=== PATIENT | male | born 1950 | race Two or more races ===

== ENCOUNTER → 2024-07-07 | Outpatient (CLI) | payer OTHER, SELFPAY ==
[2024-07-07 12:10] LABS: Basophils % (Auto) 0 % (0-2.5); Eosinophils # (Auto) 0.2 Thou/mm3 (0.0-0.5); Eosinophils % (Auto) 2 % (0-10); Hematocrit 42.4 % (41.0-53.0); Immature Granulocytes % (Auto) 0 % (0-0); Immature Granulocytes Auto 0.02 Thou/mm3 (0.00-0.00); Lymphocytes % (Auto) 33 % (10-50); Mean Corpuscular HGB Conc 35.4 g/dl (31.0-37.0); Mean Corpuscular Hemoglobin 31.3 pg (25.0-35.0); Mean Corpuscular Volume 89 fL (80-100); Monocytes % (Auto) 10 % (0-12); Neutrophils % (Auto) 55 % (37-80); Nucleated Red Blood Cell % 0 /100 WBC (0); Platelet Count 202 Thou/mm3 (140-440); Red Blood Count 4.79 Miln/mm3 (4.50-5.90); White Blood Count 9.2 Thou/mm3 (3.8-10.6)
[2024-07-07 12:19] LABS: Creatinine,Random Urine 57 mg/dL (30-125); Protein Total, Random Urine 23 mg/dL (1-14)
[2024-07-07 12:36] LABS: Sed Rate (ESR) 22 mm/hr (0-20)
== END | disposition home or self-care (01) ==
PROVIDERS: PCP Family Medicine; Referring Provider Family Medicine; Visit Provider Family Medicine
DX: I67.7 Cerebral arteritis, not elsewhere classified (principal)
CPT/HCPCS: 36415; 82570; 84156; 85025; 85652

== ENCOUNTER → 2025-05-08 | Outpatient (CLI) | payer OTHER, SELFPAY ==
--- NOTE | 2025-05-08 14:31 | XR_ITS ---
EXAMINATION: Sinus series 4 views TECHNIQUE: Tony King lateral submentovertex sinus series 4 views Date and time: May 08, 2025, 1503 hours INDICATIONS: Facial pain and swelling in the eye region 2 years FINDINGS: Chronic mucosal thickening in the maxillary antra No fluid levels No retention cysts No deviation nasal septum IMPRESSION: Mild chronic maxillary sinusitis
== END | disposition home or self-care (01) ==
PROVIDERS: PCP Family Medicine; Referring Provider Family Medicine; Visit Provider Family Medicine
DX: J32.0 Chronic maxillary sinusitis (principal)
CPT/HCPCS: 70220